=== PATIENT | female | born 1980 | race Asian ===

== ENCOUNTER 2018-07-06 09:20 | Outpatient (CLI) | payer OTHER ==
--- NOTE | 2018-07-06 13:43 | ULT ---
GALLBLADDER ULTRASOUND: Date: 07/06/18 HISTORY: Abdominal pain. COMPARISON: None. TECHNIQUE: Utilizing a multihertz transducer, sonographic imaging of the right upper quadrant is performed in th e longitudinal and transverse plane. FINDINGS: The head and body of the pancreas have a normal echotexture. The remainder of the pancreas is obscure d by bowel gas. Visualized IVC and aorta are unremarkable. Hepatic parenchyma has a normal echotexture. No hepatic masses or intrahepatic biliary dilatation. Co ntour of the hepatic margin maintained. Right hepatic lobe measures 16.3 cm. Main portal vein is apparent. Appropriate direction of flow. Common bile duct diameter is 0.3 cm. Within the lumen of the gallbladder, there is a single echogenic focus, nonshadowing, measuring 1.0 c m. Gallbladder wall is not thickened. No pericholecystic fluid. Negative Flanagan's sign. Right kidney has a normal cortical echotexture. No hydronephrosis. Right kidney measures 3.5 x 4.9 x 10.0 cm. IMPRESSION: Sonographic evidence of cholelithiasis without definite sonographic evidence of cholecystitis. POS: [facility]
== END 2018-07-06 09:21 | disposition home or self-care (01) ==
LOC: ULT 09:20
PROVIDERS: ATTEND Internal Medicine
DX: R10.9 Unspecified abdominal pain (principal); K80.20 Calculus of gallbladder without cholecystitis without obstruction
CPT/HCPCS: 76705